=== PATIENT | male | born 1990 | race Caucasian/White ===

== ENCOUNTER 2017-12-08 16:19 | Emergency (ER) | payer MEDICAID, OTHER ==
[~2017-12-08] VITALS: Ht 190.5 cm; Wt 68.2 kg
[2017-12-08] MEDS ORDERED: KETOROLAC 30 MG/1 ML ONE ×2 (17:52→17:58)
[2017-12-08] MEDS ORDERED: OXYcodone/APAP 5/325MG TABLET ONE (17:52)
[2017-12-08] MEDS ORDERED: DIAZEPAM 5 MG TABLET ONE (17:52)
[2017-12-08] MEDS ORDERED: DIAZEPAM 5 MG TABLET PO ONE (18:00)
[2017-12-08] MEDS ORDERED: KETOROLAC 60 MG/2 ML IM ONE (18:00)
[2017-12-08] MEDS ORDERED: OXYcodone/APAP 5/325MG TABLET PO ONE (18:00)
[2017-12-08 18:36] VITALS: BP 122/74
== END 2017-12-08 18:38 | disposition home or self-care (01) ==
LOC: ED 18:32
DX: M54.12 Radiculopathy, cervical region (principal)
CPT/HCPCS: 96372; 99283; J1885

== ENCOUNTER 2018-09-29 10:25 | Emergency (ER) | payer MEDICAID, OTHER ==
[~2018-09-29] VITALS: Ht 190.5 cm; Wt 70.2 kg
[2018-09-29 10:33] VITALS: BP 103/72
== END 2018-09-29 11:14 | disposition left against medical advice (07) ==
LOC: ED 11:05
DX: R10.9 Unspecified abdominal pain (principal); Z53.21 Procedure and treatment not carried out due to patient leaving prior to being seen by health care provider

== ENCOUNTER 2020-05-20 19:42 | Emergency (ER) | payer SELFPAY ==
[~2020-05-20] VITALS: Ht 188 cm; Wt 70.9 kg
[2020-05-20 19:49] VITALS: BP 107/73
[2020-05-20] MEDS ORDERED: IBUPROFEN 600 MG TABLET ONE (20:44)
[2020-05-20] MEDS ORDERED: IBUPROFEN 600 MG TABLET PO ONE (21:00)
[2020-05-20] MEDS ORDERED: CYCLOBENZAPRINE 10 MG TABLET PO ONE (21:30)
== END 2020-05-20 21:16 | disposition home or self-care (01) ==
LOC: ED 20:45
DX: S97.81XA Crushing injury of right foot, initial encounter (principal); F17.200 Nicotine dependence, unspecified, uncomplicated; W20.8XXA Other cause of strike by thrown, projected or falling object, initial encounter; Y93.89 Activity, other specified; Y92.098 Other place in other non-institutional residence as the place of occurrence of the external cause; Y99.8 Other external cause status
CPT/HCPCS: 99283